=== PATIENT | female | born 1965 | race Two or more races ===

== ENCOUNTER 2024-06-06 07:34 | Outpatient (CLI) | payer OTHER | END 2024-06-06 07:43 | disposition home or self-care (01) | LOC: MAMO-SONO 07:34 | PROVIDERS: ATTEND Obstetrics & Gynecology | DX: N60.21 Fibroadenosis of right breast (principal); N60.22 Fibroadenosis of left breast; Z12.31 Encounter for screening mammogram for malignant neoplasm of breast ==